=== PATIENT | male | born 1995 | race Caucasian/White ===

== ENCOUNTER 2023-03-25 11:43 | Inpatient (IN) | payer OTHER, SELFPAY ==
[2023-03-25] VITALS (12 sets, daily range): BP systolic 134–161; BP diastolic 78–106; PULSE 70–104; RESP 17–26; TEMP 36.4–36.6; O2SAT 97–100; BMI 37.3
--- NOTE | ~2023-03-25 | CT_ITS ---
CT of the Abdomen and Pelvis: Indication: Abdominal pain Technique: 2.5 mm axial scans were obtained through the abdomen and pelvis following intravenous adm inistration of 100 cc of Omnipaque 350. Dose reduction technique was used on this scan by utilizing a utomated exposure control and iterative reconstruction technique. The dose-length product (DLP) was 1 635.87 mGy-cm. Findings: Scans through the lung bases are unremarkable. There is diffuse fatty infiltration of liver. The spleen, pancreas, gallbladder, adrenals and kidneys are within normal limits. There is inflammatory stranding in the pancreaticoduodenal groove region e xtending into the infrahepatic region and right retroperitoneum, extending to the right pelvis. No ab scess evident. No free air. No evidence of aortic aneurysm. No lymphadenopathy. No bowel obstruction or bowel wall thickening. There is no evidence to suggest acute appendicitis. Images through the pelvis were performed. Urinary bladder unremarkable. Prostate gland and seminal ve sicles are unremarkable. Impression: Inflammatory change in the right-sided the abdomen, extending from the pancreaticoduodenal groove thr ough the right retroperitoneum into the right pelvis. Precise etiology is somewhat unclear, though ac tessy pancreatitis would be likely consideration. Duodenitis or peptic ulcer disease would be an altern ative consideration. Primary bowel pathology felt to be less likely. Diffuse fatty infiltration of liver. Reviewed, dictated and finalized at location . [employer]ICAL INSTRUCTOR Impression: Inflammatory change in the right-sided the abdomen, extending from the pancreat icoduodenal groove through the right retroperitoneum into the right pelvis. Pre cise etiology is somewhat unclear, though acute pancreatitis would be likely co nsideration. Duodenitis or peptic ulcer disease would be an alternative conside ration. Primary bowel pathology felt to be less likely. Diffuse fatty infiltration of liver.
[2023-03-25 11:59] LABS: Basophils Percent Auto 0.4 % (0.2-1.2); Eosinophils Absolute Auto 0.1 K/mm3 (0-0.3); Eosinophils Percent Auto 1.6 % (0-4.4); Hematocrit 49.7 % (42.0-52.0); Hemoglobin 16.3 g/dL (14.0-18.0); Immature Granulocyte Absolute 0.04 K/mm3 (0.00-0.031); Immature Granulocyte Percent A 0.5 % (0-0.5); Lymphocytes Absolute Auto 1.79 K/mm3 (0.9-3.2); Lymphocytes Percent Auto 21.7 % (18.3-44.2); Mean Corpuscular HGB Conc 32.8 g/dl (32-36); Mean Corpuscular Volume 94.5 fl (80-100); Mean Platelet Volume 8.7 fl (7.4-10.4); Monocytes Absolute Auto 0.7 K/mm3 (0.1-0.6); Monocytes Percent Auto 8.1 % (2.6-8.5); Neutrophils Absolute Auto 5.6 K/mm3 (1.3-6.7); Neutrophils Percent Auto 67.7 % (45.5-73.1); Platelet Count Result 306 k/mm3 (150-375); Red Blood Count 5.26 M/mm3 (4.6-6.20); Red Cell Distribution Width 12.1 % (11.5-14.5); White Blood Count 8.2 K/mm3 (4.5-10.0)
--- NOTE | 2023-03-25 12:10 | ED.ABDPAIN ---
HPI - Abdominal Pain General Chief Complaint: Abdominal Pain Stated Complaint: Abd pain Time Seen by Provider: 03/25/23 12:00 History of Present Illness HPI narrative: 27-year-old male presenting with abdominal pain. Patient states that for the last couple of days he has had a pressure-like pain in his periumbilical region. States that it extends into his right lower and left lower quadrants. Associated with decreased appetite and intermittent nausea vomiting. Denies diarrhea or constipation. No hematochezia or melena. No fevers or chills. No further complaints. Related Data Home Medications Medication Instructions Recorded Confirmed dextroamphetamine-amphetamine 20 20 mg PO BID 03/25/23 03/25/23 mg tablet propranolol 20 mg tablet 20 mg PO TID 03/25/23 03/25/23 sertraline 50 mg tablet 50 mg PO HS 03/25/23 03/25/23 Allergies Allergy/AdvReac Type Severity Reaction Status Date / Time No Known Allergies Allergy Verified 03/25/23 11:52 Review of Systems Review of Systems: All systems reviewed & are unremarkable except as noted in HPI and below PMFSH Past Medical History Medical History (Updated 03/29/23 @ 13:54 by Rylee Shah MD) ADHD Alcohol abuse Anxiety and depression Asthma Elevated liver enzymes Upper abdominal pain Surgical History Surgical History History of repair of anterior cruciate ligament L Knee - 2010 Family History Family History Father Hypertension GERD (gastroesophageal reflux disease) Social History Social History Smoking status: Former smoker Second hand tobacco smoke exposure: No Additional smoking assessment comments: stated he vapes every now and then. Alcohol intake: current Drinks per week: 4 Substance use: never Substance use type: does not use Do You Feel Safe in your Home?: Yes Lack of Transportation: No Lack of Food: Never True Current Housing: I Have Housing Concerned About Future Housing: No Difficulty Paying Gas/Electric Bills: No Difficulty Paying for Meds: No Currently Unemployed: No Education: High School Diploma/GED Difficulty w/ Childcare or Family Care: No Spiritual care concerns: No Exam Narrative: GENERAL: Well-appearing, well-nourished, and in no acute distress. HEAD: Normocephalic, atraumatic. EYES: PERRLA and EOMI. ENT: Grossly unremarkable NECK: Supple. CHEST: Clear to auscultation. No respiratory distress. HEART: Regular rate and rhythm ABDOMEN: Soft, +periumbilical/RLQ/LLQ tenderness w/o guarding or rebound EXTREMITIES: Normal range of motion. SKIN: Warm, dry, no rash. NEURO: Alert and oriented x3. PSYCH: Normal mood and affect. Course Vital Signs Vital signs: Vital Signs Temperature 97.6 F 03/25/23 11:49 Pulse Rate 104 H 03/25/23 11:49 Respiratory Rate 20 03/25/23 11:49 Blood Pressure 161/106 H 03/25/23 11:49 Pulse Oximetry 100 03/25/23 11:49 Oxygen Delivery Room Air 03/25/23 11:49 Temperature 96.9 F L 03/27/23 06:00 Pulse Rate 85 03/27/23 08:42 Respiratory Rate 12 03/27/23 08:00 Blood Pressure 143/71 H 03/27/23 06:00 Pulse Oximetry 99 03/27/23 08:00 Oxygen Delivery Room Air 03/27/23 08:00 MDM - Abdominal Pain MDM Narrative Medical decision making narrative: 27-year-old male presenting with several days of abdominal pain. Patient is hypertensive, Otherwise vitals are within normal limits. Exam remarkable for the above. CBC is unremarkable. Lipase is elevated at 1500. CT abdomen pelvis with diffuse right-sided inflammation, possibly from acute pancreatitis which is c/w his labs. Duodenitis and peptic ulcer disease also in the differential. No abscesses or free air. Patient requires admission for further management evaluation. Patient is agreeable this selwyn
[2023-03-25 12:14] LABS: Alanine Aminotransferase 82 U/L (6-50); Albumin Level 4.7 g/dL (3.5-5.1); Alkaline Phosphatase 124 U/L (38-126); Anion Gap 10 mmol/L (8-16); Aspartate Amino Transferase 96 U/L (17-59); Bilirubin,Total 1.3 mg/dL (0.2-1.3); Blood Urea Nitrogen 12 mg/dL (9-20); Calcium 9.4 mg/dL (8.4-10.2); Carbon Dioxide 28 mmol/L (22-30); Chloride 99 mmol/L (98-107); Estimated CRCL calculation 162 ml/min; Estimated Glomerular Filt Rate > 60; Glucose 118 mg/dL (65-110); Lipase 1541 U/L (23-300); Potassium 4.1 mmol/L (3.4-5.0); Sodium 137 mmol/L (137-145)
[2023-03-25 12:14] LABS: Appearance Urine Cloudy (Clear); Bacteria Urine None Seen /hpf; Bilirubin Urine Negative (Negative); Blood Urine Negative (Negative); Color Urine Dark Yellow (Yellow); Glucose Urine UA Negative (Negative); Ketones Urine 1+ mg/dL (Negative); Leukocyte Esterase Ur Negative LEU/UL (Negative); Nitrate Urine Negative (Negative); Non Pathogenic Casts 0-2; Protein Urine 1+ mg/dL (Negative); RBC Urine 0-2 /hpf (0-2); Squamous Epithelial Cell Urine None seen /hpf (Few); WBC Urine 0-5 /hpf
[2023-03-25] MEDS: SODIUM CHLORIDE 0.9% IV 1,000 ML 999 ML IV CONT (12:20)
[2023-03-25 12:22] LABS: Add Urine Microscopic? YES
--- NOTE | 2023-03-25 12:29 | PC.NURSE ---
Pt to CT scan via w/c at this time.
--- NOTE | 2023-03-25 16:11 | ADMGEN ---
This patient, Adama Chapa, was admitted to 3 [facility] Surg Room 320-01. Patient/family oriented to hospital policies and general routines including ID bracelet, bed and alarms, visiting hours, pain management, procedures, bathroom and other care routines, personal items, smoking policy, room service/diet, and visiting hours. Information on how to activate the Rapid Response Team has been discussed. Patient/Family are encouraged to report perceived risks to care and to ask questions if they do not understand what they are told or what they should do.
--- NOTE | 2023-03-25 19:16 | PM.IMHP ---
H&P: HPI History of Present Illness Date/Time: 03/25/23 19:16 Chief Complaint: N/V, Lower Abdominal Pain Narrative: 27 y/o M presents here with lower abdominal pain and N/V with PMH of asthma, ADHD, anxiety/depression. Patient reports generalized lower abdominal pain for the past 2 days, described as severe and pressure. Proceeded by 2 weeks of intermittent nausea and vomiting that did not appear to correlate with lack of food or consumption of food. Last bowel movement was last, 03/24. Normal color and consistency. Reports alcohol consumption 3-4 days per week, 3-6 glasses of wine. Does not take [id number]-chcrzgd medications often. Reports acid reflux symptoms intermittently, has worsened over the last 3-4 years. Does not follow with a PCP, recently moved here from [place] to work with his brother. Currently working as a screw machine set up operator tool. ED workup revealed an unremarkable CBC, no electrolyte derangements, creatinine WNL, LFTs elevated and lipase 1541. UA not consistent with UTI. CT of the abdomen/pelvis showed inflammatory changes in the right side of the abdomen extending from the?pancreaticoduodenal groove into the right pelvis. Review of Systems Review of Systems: All systems reviewed & are unremarkable except as noted in HPI and below PMFSH Past Medical History Medical History (Updated 03/26/23 @ 00:46 by Shelbie Fuentes APRN) ADHD Anxiety and depression Asthma Surgical History Surgical History History of repair of anterior cruciate ligament L Knee - 2010 Family History Family History Father Hypertension GERD (gastroesophageal reflux disease) Social History Social History Smoking status: Former smoker Second hand tobacco smoke exposure: No Additional smoking assessment comments: stated he vapes every now and then. Alcohol intake: current Drinks per week: 4 Substance use: never Substance use type: does not use Do You Feel Safe in your Home?: Yes Lack of Transportation: No Lack of Food: Never True Current Housing: I Have Housing Concerned About Future Housing: No Difficulty Paying Gas/Electric Bills: No Difficulty Paying for Meds: No Currently Unemployed: No Education: High School Diploma/GED Difficulty w/ Childcare or Family Care: No Spiritual care concerns: No Meds Home Medications and Allergies Home Medications Medication Instructions Recorded Confirmed Type dextroamphetamine-amphetamine 20 20 mg PO BID 03/25/23 03/25/23 History mg tablet propranolol 20 mg tablet 20 mg PO TID 03/25/23 03/25/23 History sertraline 50 mg tablet 50 mg PO HS 03/25/23 03/25/23 History Allergies Allergy/AdvReac Type Severity Reaction Status Date / Time No Known Allergies Allergy Verified 03/25/23 11:52 Vital Signs Vital Signs - 24 hr 03/25/23 11:49 03/25/23 12:46 03/25/23 12:17 Temperature 97.6 F Pulse Rate 104 H 86 87 Respiratory Rate 20 24 H 26 H Blood Pressure 161/106 H 147/94 H Pulse Oximetry 100 100 97 Oxygen Delivery Room Air 03/25/23 12:45 03/25/23 12:46 03/25/23 13:00 Temperature Pulse Rate 95 87 96 Respiratory Rate 23 H 22 H 25 H Blood Pressure 147/94 H Pulse Oximetry 100 100 100 Oxygen Delivery 03/25/23 13:22 03/25/23 13:30 03/25/23 13:49 Temperature Pulse Rate 85 93 82 Respiratory Rate 25 H 17 24 H Blood Pressure Pulse Oximetry 100 100 99 Oxygen Delivery 03/25/23 14:02 03/25/23 15:24 03/25/23 16:17 Temperature Pulse Rate 93 86 Respiratory Rate 20 20 Blood Pressure 143/93 H Pulse Oximetry 100 98 Oxygen Delivery Room Air Exam Const: General: comfortable and no acute distress Other: Nontoxic appearance. Overweight body habitus. HENMT: Face/Nose/Sinus: Normal nares present Mouth: Yes moist muco
[2023-03-26] MEDS: LACTATED RINGERS 1,000 ML 100 ML IV CONT ×2 (01:20→10:54)
[2023-03-26 06:00] VITALS: BP 141/86; PULSE 69; RESP 21; TEMP 36.6; O2SAT 100
[2023-03-26 07:08] LABS: Cholesterol 166 mg/dL (0-200); HDL Direct 57 mg/dL; Triglycerides 100 mg/dL (<150)
[2023-03-26 07:18] LABS: LDL Cholesterol Direct 89 mg/dL
[2023-03-26 07:26] LABS: Hemoglobin A1C 5.7 % (<5.7)
[2023-03-26] MEDS: PANTOPRAZOLE SODIUM IV 40 MG VIAL IV PUSH ×2 (08:37→20:03)
--- NOTE | 2023-03-26 09:52 | PM.IMPN ---
Progress Note: A&P Assessment and Plan (1) Pancreatitis: Code(s): K85.90 - Acute pancreatitis without necrosis or infection, unspecified Status: Acute (2) Nausea and vomiting: Code(s): R11.2 - Nausea with vomiting, unspecified Status: Acute (3) Abdominal pain, lower: Code(s): R10.30 - Lower abdominal pain, unspecified Status: Acute (4) Elevated BP without diagnosis of hypertension: Code(s): R03.0 - Elevated blood-pressure reading, without diagnosis of hypertension Status: Acute Plan (1) Abdominal pain, lower: ?Code(s): R10.30 - Lower abdominal pain, unspecified ?Status:?Acute ?Assessment and Plan: CT abdomen/pelvis: Inflammatory change in the right-sided the abdomen, extending from the pancreaticoduodenal groove through the right retroperitoneum into the right pelvis. Precise etiology is somewhat unclear, though acute pancreatitis would be likely consideration. Duodenitis or peptic ulcer disease would be an alternative consideration. Primary bowel pathology felt to be less likely. Diffuse fatty infiltration of liver. Denied any changes in stool color.? No correlation in p.o. intake and N/V.? Endorsed moderate to heavy alcohol intake. very infrequent OTC medication use.? AST 96, ALT 82, total bilirubin 1.3, alk-phos 124, lipase 1541.? Given CT findings, Started on PPI, clear liquids, p.r.n. pain medications, and p.r.n. antiemetics.? Reassess LFTs and lipase in a.m. GI was consulted.? Awaiting recommendations.? (2) Pancreatitis: ?Code(s): K85.90 - Acute pancreatitis without necrosis or infection, unspecified ?Status:?Acute ?Assessment and Plan: Started on clear liquids, p.r.n. pain medications, and p.r.n. antiemetics.? Reassess lipase in a.m. add lipid panel and A1C to AM labs.? Patient educated on cessation of alcohol. (3) Nausea and vomiting: ?Code(s): R11.2 - Nausea with vomiting, unspecified ?Status:?Acute ?Assessment and Plan: P.r.n. antiemetics.? Started on clear liquids.? Assess for toleration. (4) Elevated BP without diagnosis of hypertension: ?Code(s): R03.0 - Elevated blood-pressure reading, without diagnosis of hypertension ?Status:?Acute ?Assessment and Plan: Patient denied personal history of HTN, does have family history of HTN.? Initial BP 161/106.? Subsequently 140s over 90s.? Continue to monitor.? Currently asymptomatic.? Not currently established with a PCP, will need referral/information at discharge. Subjective Date/time seen: 03/26/23 09:52 Interval history: I saw exam patient today, patient feels nausea results, pain is tolerable, patient is afebrile, labs are reviewed Exam Narrative: GENERAL: Pleasant, in no acute distress. Well-nourished. - EYES: EOMI. Anicteric. - HENT: Moist mucous membranes. - LUNGS: Clear to auscultation bilaterally, no wheezing, rhonchi, or rales. - CARDIOVASCULAR: Regular rate and rhythm. No murmur. No JVD. - ABDOMEN: Soft, diffuse tender and non-distended. No palpable masses. - EXTREMITIES: No edema. Peripheral pulses 2+. Non-tender. - NEUROLOGIC: No focal neurological deficits. CN II-XII grossly intact. - PSYCHIATRIC: Awake, Alert and oriented x 3. Appropriate mood and affect. - SKIN: No rashes or lesions. Warm. - LYMPH: No cervical lymphadenopathy. Objective Data Vital Signs Vital Signs: Vital Signs - 24 hr 03/25/23 11:49 03/25/23 12:46 03/25/23 12:17 Temperature 97.6 F Pulse Rate 104 H 86 87 Respiratory Rate 20 24 H 26 H Blood Pressure 161/106 H 147/94 H Pulse Oximetry 100 100 97 Oxygen Delivery Room Air 03/25/23 12:45 03/25/23 12:46 03/25/23 13:00 Temperature Pulse Rate 95 87 96 Respiratory Rate 23 H 22 H 25 H Blood Pressure 147/94 H Pulse Oximetry 100 100 100 Oxygen Delivery 03/25/23 13:22 03/25/23 13:30 03/25/23 13:49 Temperature Pulse Rate 85 93 82 Respiratory Rate 25 H 17 24 H Blood Pressu
[2023-03-26 10:18] LABS: Hematocrit 44.3 % (42.0-52.0); Hemoglobin 14.6 g/dL (14.0-18.0); Mean Corpuscular Hemoglobin 31.3 pg (26-34); Mean Corpuscular Volume 94.9 fl (80-100); Mean Platelet Volume 9.2 fl (7.4-10.4); Platelet Count Result 265 k/mm3 (150-375); Red Blood Count 4.67 M/mm3 (4.6-6.20); Red Cell Distribution Width 12.1 % (11.5-14.5)
[2023-03-26 10:54] VITALS: PULSE 65
[2023-03-26] MEDS: PROPRANOLOL HCL 20 MG TABLET PO ×2 (10:54→17:59)
[2023-03-26 10:55] LABS: Alanine Aminotransferase 62 U/L (6-50); Albumin Level 4.1 g/dL (3.5-5.1); Alkaline Phosphatase 94 U/L (38-126); Anion Gap 9 mmol/L (8-16); Aspartate Amino Transferase 74 U/L (17-59); Blood Urea Nitrogen 12 mg/dL (9-20); Calcium 8.8 mg/dL (8.4-10.2); Carbon Dioxide 25 mmol/L (22-30); Chloride 103 mmol/L (98-107); Estimated CRCL calculation 181 ml/min; Estimated Glomerular Filt Rate > 60; Glucose 110 mg/dL (65-110); Magnesium 2.1 mg/dL (1.6-2.3); Phosphorus 2.8 mg/dL (2.5-4.5); Potassium 3.7 mmol/L (3.4-5.0); Sodium 137 mmol/L (137-145)
[2023-03-26 14:00] VITALS: BP 148/97; PULSE 79; RESP 18; TEMP 36.5; O2SAT 99
--- NOTE | 2023-03-26 17:37 | PC.NURSE ---
called Dr Gatica regarding consult. will be in to see patient in the am 03/27
[2023-03-26 17:59] VITALS: PULSE 75
[2023-03-26 19:20] VITALS: O2SAT 99
[2023-03-26] MEDS: SERTRALINE HCL 50 MG TABLET PO (20:03)
[2023-03-26 21:48] VITALS: BP 132/78; PULSE 72; RESP 12; TEMP 36.5; O2SAT 98
[2023-03-27 06:00] VITALS: BP 143/71; PULSE 63; RESP 12; TEMP 36.1; O2SAT 99
[2023-03-27 06:44] LABS: Basophils Percent Auto 0.5 % (0.2-1.2); Eosinophils Absolute Auto 0.1 K/mm3 (0-0.3); Eosinophils Percent Auto 2.2 % (0-4.4); Hematocrit 43.2 % (42.0-52.0); Immature Granulocyte Absolute 0.03 K/mm3 (0.00-0.031); Immature Granulocyte Percent A 0.5 % (0-0.5); Lymphocytes Absolute Auto 1.87 K/mm3 (0.9-3.2); Lymphocytes Percent Auto 34.2 % (18.3-44.2); Mean Corpuscular HGB Conc 32.4 g/dl (32-36); Mean Corpuscular Hemoglobin 31.1 pg (26-34); Mean Platelet Volume 8.7 fl (7.4-10.4); Monocytes Absolute Auto 0.4 K/mm3 (0.1-0.6); Monocytes Percent Auto 7.1 % (2.6-8.5); Neutrophils Percent Auto 55.5 % (45.5-73.1); Platelet Count Result 243 k/mm3 (150-375); Red Cell Distribution Width 11.9 % (11.5-14.5); White Blood Count 5.5 K/mm3 (4.5-10.0)
[2023-03-27 06:59] LABS: Alanine Aminotransferase 58 U/L (6-50); Albumin Level 4.1 g/dL (3.5-5.1); Alkaline Phosphatase 91 U/L (38-126); Anion Gap 9 mmol/L (8-16); Aspartate Amino Transferase 79 U/L (17-59); Bilirubin,Total 0.8 mg/dL (0.2-1.3); Blood Urea Nitrogen 7 mg/dL (9-20); Calcium 9.1 mg/dL (8.4-10.2); Carbon Dioxide 27 mmol/L (22-30); Chloride 102 mmol/L (98-107); Estimated CRCL calculation 181 ml/min; Estimated Glomerular Filt Rate > 60; Glucose 101 mg/dL (65-110); Phosphorus 3.4 mg/dL (2.5-4.5); Potassium 3.7 mmol/L (3.4-5.0); Sodium 138 mmol/L (137-145)
[2023-03-27 07:05] LABS: Lipase 1976 U/L (23-300)
[2023-03-27 08:00] VITALS: PULSE 85; RESP 12; O2SAT 99
[2023-03-27 08:42] VITALS: PULSE 85
[2023-03-27] MEDS: PROPRANOLOL HCL 20 MG TABLET PO ×2 (08:42→12:27)
[2023-03-27] MEDS: PANTOPRAZOLE SODIUM IV 40 MG VIAL IV PUSH (08:42)
--- NOTE | 2023-03-27 08:52 | PM.IMPN ---
Progress Note: A&P Assessment and Plan (1) Pancreatitis: Code(s): K85.90 - Acute pancreatitis without necrosis or infection, unspecified Status: Acute (2) Nausea and vomiting: Code(s): R11.2 - Nausea with vomiting, unspecified Status: Acute (3) Abdominal pain, lower: Code(s): R10.30 - Lower abdominal pain, unspecified Status: Acute (4) Elevated BP without diagnosis of hypertension: Code(s): R03.0 - Elevated blood-pressure reading, without diagnosis of hypertension Status: Acute Plan (1) Abdominal pain, lower: ?Code(s): R10.30 - Lower abdominal pain, unspecified ?Status:?Acute ?Assessment and Plan: CT abdomen/pelvis: Inflammatory change in the right-sided the abdomen, extending from the pancreaticoduodenal groove through the right retroperitoneum into the right pelvis. Precise etiology is somewhat unclear, though acute pancreatitis would be likely consideration. Duodenitis or peptic ulcer disease would be an alternative consideration. Primary bowel pathology felt to be less likely. Diffuse fatty infiltration of liver. Denied any changes in stool color.? No correlation in p.o. intake and N/V.? Endorsed moderate to heavy alcohol intake. very infrequent OTC medication use.? AST 96, ALT 82, total bilirubin 1.3, alk-phos 124, lipase 1541.? Given CT findings, Started on PPI, clear liquids, p.r.n. pain medications, and p.r.n. antiemetics.? Reassess LFTs and lipase in a.m. GI was consulted.? Awaiting recommendations.? 03/27. Patient has no abdomen pain, denies nausea vomiting. Patient will follow with primary care doctor in the office, referral to GI per primary care doctor (2) Pancreatitis: ?Code(s): K85.90 - Acute pancreatitis without necrosis or infection, unspecified ?Status:?Acute ?Assessment and Plan: Started on clear liquids, p.r.n. pain medications, and p.r.n. antiemetics.? Reassess lipase in a.m. add lipid panel and A1C to AM labs.? Patient educated on cessation of alcohol. 03/27: Start low-fat diet, patient tolerated low-fat diet (3) Nausea and vomiting: ?Code(s): R11.2 - Nausea with vomiting, unspecified ?Status:?Acute ?Assessment and Plan: P.r.n. antiemetics.? Started on clear liquids.? Assess for toleration. Now resolves (4) Elevated BP without diagnosis of hypertension: ?Code(s): R03.0 - Elevated blood-pressure reading, without diagnosis of hypertension ?Status:?Acute ?Assessment and Plan: Patient denied personal history of HTN, does have family history of HTN.? Initial BP 161/106.? Subsequently 140s over 90s.? Continue to monitor.? Currently asymptomatic.? Not currently established with a PCP Follow-up is primary care doctor for re-evaluation Subjective Date/time seen: 03/27/23 08:52 Interval history: I saw exam patient today, patient has no pain, denies nausea vomiting, patient tolerated low fat diet well, patient is afebrile, labs are reviewed Exam Narrative: GENERAL: Pleasant, in no acute distress. Well-nourished. - EYES: EOMI. Anicteric. - HENT: Moist mucous membranes. - LUNGS: Clear to auscultation bilaterally, no wheezing, rhonchi, or rales. - CARDIOVASCULAR: Regular rate and rhythm. No murmur. No JVD. - ABDOMEN: Soft, no tender and non-distended. No palpable masses. - EXTREMITIES: No edema. Peripheral pulses 2+. Non-tender. - NEUROLOGIC: No focal neurological deficits. CN II-XII grossly intact. - PSYCHIATRIC: Awake, Alert and oriented x 3. Appropriate mood and affect. - SKIN: No rashes or lesions. Warm. - LYMPH: No cervical lymphadenopathy. Objective Data Vital Signs Vital Signs: Vital Signs - 24 hr 03/26/23 10:54 03/26/23 14:00 03/26/23 17:59 Temperature 97.7 F Pulse Rate 65 79 75 Respiratory Rate 18 Blood Pressure 148/97 H Pulse Oximetry 99 Oxygen Delivery 03/26/23 19:20 03/26/23 21:48 03/27/23 06:00 Temperature 97.7 F 96.9 F L Pulse Rate 72
--- NOTE | 2023-03-27 14:58 | PM.DS ---
DS: Admitting Diagnosis Discharge Date 03/27/23 Admitting Diagnosis K85.90 - Acute pancreatitis without necrosis or infection, unspecified ?Status:?Acute (2) Nausea and vomiting: ?Code(s): R11.2 - Nausea with vomiting, unspecified ?Status:?Acute (3) Abdominal pain, lower: ?Code(s): R10.30 - Lower abdominal pain, unspecified ?Status:?Acute (4) Elevated BP without diagnosis of hypertension: ?Code(s): R03.0 - Elevated blood-pressure reading, without diagnosis of hypertension ?Status:?Acute DS: Discharge Diagnosis Discharge Diagnosis (1) Pancreatitis: Code(s): K85.90 - Acute pancreatitis without necrosis or infection, unspecified Status: Acute (2) Nausea and vomiting: Code(s): R11.2 - Nausea with vomiting, unspecified Status: Acute (3) Abdominal pain, lower: Code(s): R10.30 - Lower abdominal pain, unspecified Status: Acute (4) Elevated BP without diagnosis of hypertension: Code(s): R03.0 - Elevated blood-pressure reading, without diagnosis of hypertension Status: Acute DS: Summary Hospital Course Hospital Course: Per H&P, 27 y/o M presents here with lower abdominal pain and N/V with PMH of asthma, ADHD, anxiety/depression. Patient reports generalized lower abdominal pain for the past 2 days, described as severe and pressure.? Proceeded by 2 weeks of intermittent nausea and vomiting that did not appear to correlate with lack of food or consumption of food.? Last bowel movement was last, 03/24.? Normal color and consistency.? Reports alcohol consumption 3-4 days per week, 3-6 glasses of wine.? Does not take [id number] medications often.? Reports acid reflux symptoms intermittently, has worsened over the last 3-4 years.? Does not follow with a PCP, recently moved here from [place] to work with his brother.? Currently working as a logging contractor.? ED workup revealed an unremarkable CBC, no electrolyte derangements, creatinine WNL, LFTs elevated and lipase 1541.? UA not consistent with UTI.? CT of the abdomen/pelvis showed inflammatory changes in the right side of the abdomen extending from the?pancreaticoduodenal groove into the right pelvis. The following med issues have been addressed during hospitalization (1) Abdominal pain, lower: ?Code(s): R10.30 - Lower abdominal pain, unspecified ?Status:?Acute ?Assessment and Plan: CT abdomen/pelvis: Inflammatory change in the right-sided the abdomen, extending from the pancreaticoduodenal groove through the right retroperitoneum into the right pelvis. Precise etiology is somewhat unclear, though acute pancreatitis would be likely consideration. Duodenitis or peptic ulcer disease would be an alternative consideration. Primary bowel pathology felt to be less likely. Diffuse fatty infiltration of liver. Denied any changes in stool color.? No correlation in p.o. intake and N/V.? Endorsed moderate to heavy alcohol intake. very infrequent OTC medication use.? AST 96, ALT 82, total bilirubin 1.3, alk-phos 124, lipase 1541.? Given CT findings, Started on PPI, clear liquids, p.r.n. pain medications, and p.r.n. antiemetics.? Reassess LFTs and lipase in a.m. GI was consulted.? Awaiting recommendations.? 03/27. Patient has no abdomen pain, denies nausea vomiting. Possible alcoholic gastroenteritis, start Protonix 40 mg daily p.o., patient will follow with primary care doctor in the office, referral to GI per primary care doctor (2) Pancreatitis: ?Code(s): K85.90 - Acute pancreatitis without necrosis or infection, unspecified ?Status:?Acute ?Assessment and Plan: Started on clear liquids, p.r.n. pain medications, and p.r.n. antiemetics.? Reassess lipase in a.m. add lipid panel and A1C to AM labs.? Patient educated on cessation of alcohol. 03/27: Start low-fat diet, patient tolerated low-fat diet (3) Nausea and vomiting: ?Code(s): R11.2 - Nausea with vomiting, unspecified
--- NOTE | 2023-03-27 15:14 | WPDGICN ---
Assessment and Plan Assessment and plan (1) Pancreatitis: Code(s): K85.90 - Acute pancreatitis without necrosis or infection, unspecified Status: Acute Assessment and Plan: clinically better and now tolerating low fat diet he is going home probably alcohol related- he understood that should not drink any more alcohol follow-up office as needed (2) Nausea and vomiting: Code(s): R11.2 - Nausea with vomiting, unspecified Status: Acute Assessment and Plan: resolved (3) Upper abdominal pain: Code(s): R10.10 - Upper abdominal pain, unspecified Status: Acute (4) Elevated liver enzymes: Code(s): R74.8 - Abnormal levels of other serum enzymes Status: Acute Assessment and Plan: from alcohol abuse and recent pancreatitis monitor as outpatient and if persistent elevated then follow-up office (5) Alcohol abuse: Code(s): F10.10 - Alcohol abuse, uncomplicated Status: Acute Assessment and Plan: thiamine, quit drinking GI Consult Note Consult date/time: 03/27/23 15:14 Reason for consult: pancreatitis HPI: Adama Chapa is a 27 year old male with alcohol abuse (6-7 glasses of wine daily for few years) who came here with progressive abdominal discomfort for almost 10 days that worsened in intensity, also had nause and some emesis, finally came to ER and found to have first episode of pancreatitis, elevated lipase, transaminases 50-70, CT scan c/w pancreatitis and fatty liver. Treated medically and pain resolved, today had low fat diet and no more nausea, he is ready to go home. He has anxiety and ADHD on meds. Never had egd. Review of Systems Constitutional: Constitutional: Denies chills Eyes: Eyes: Reports blurry vision ENT: Reports Normal hearing present Cardiovascular: Cardiovascular: Denies chest pain Respiratory: Respiratory: Denies cough Gastrointestinal: Gastrointestinal: Reports abdominal pain, Reports nausea and Reports vomiting Genitourinary: Genitourinary: Denies dysuria Musculoskeletal: Musculoskeletal: Denies arthralgias Integumentary/Breasts: Skin/Breast: Denies rash Neurologic: Denies Abnormal speech present Psychiatric: Psychiatric: Reports anxiety PMFSH Past Medical History Medical History (Updated 03/27/23 @ 15:17 by Gonzalo Bray MD) ADHD Alcohol abuse Anxiety and depression Asthma Elevated liver enzymes Upper abdominal pain Surgical History Surgical History History of repair of anterior cruciate ligament L Knee - 2010 Family History Family History Father Hypertension GERD (gastroesophageal reflux disease) Social History Social History Smoking status: Former smoker Second hand tobacco smoke exposure: No Additional smoking assessment comments: stated he vapes every now and then. Alcohol intake: current Drinks per week: 4 Substance use: never Substance use type: does not use Do You Feel Safe in your Home?: Yes Lack of Transportation: No Lack of Food: Never True Current Housing: I Have Housing Concerned About Future Housing: No Difficulty Paying Gas/Electric Bills: No Difficulty Paying for Meds: No Currently Unemployed: No Education: High School Diploma/GED Difficulty w/ Childcare or Family Care: No Spiritual care concerns: No Meds Home Medications and Allergies Home Medications Medication Instructions Recorded Confirmed Type dextroamphetamine-amphetamine 20 20 mg PO BID 03/25/23 03/25/23 History mg tablet propranolol 20 mg tablet 20 mg PO TID 03/25/23 03/25/23 History sertraline 50 mg tablet 50 mg PO HS 03/25/23 03/25/23 History pantoprazole 40 mg granules 40 mg PO DAILY #30 ea 03/27/23 Rx delayed-release for susp in packet (Protonix) Allergi
== END 2023-03-27 15:06 | disposition home or self-care (01) | DRG 439 ==
LOC: ANHED 12:18 → ANH3MEDSUR 15:11
PROVIDERS: Emergency Medicine; Student in an Organized Health Care Education/Training Program; Admitting Provider Internal Medicine; Emergency Provider Emergency Medicine; Visit Provider Hospitalist
DX: K85.90 Acute pancreatitis without necrosis or infection, unspecified (principal); J45.901 Unspecified asthma with (acute) exacerbation; R03.0 Elevated blood-pressure reading, without diagnosis of hypertension; F90.9 Attention-deficit hyperactivity disorder, unspecified type; F41.9 Anxiety disorder, unspecified; F32.A Depression, unspecified; F10.10 Alcohol abuse, uncomplicated; F17.290 Nicotine dependence, other tobacco product, uncomplicated; Z28.21 Immunization not carried out because of patient refusal
CPT/HCPCS: 36415; 74177; 80053; 80061; 81001; 83036; 83690; 83735; 84100; 85025; 85027; 99285; A9270; C9113; G0378; J7030; J7120; Q9967

== ENCOUNTER 2024-09-29 18:11 | Emergency (ER) | payer OTHER, SELFPAY ==
--- NOTE | 2024-09-29 18:12 | ED.WOUNDLAC ---
HPI - Wound/Laceration General Chief Complaint: Wound/Laceration Stated Complaint: Cut Left Leg Time Seen by Provider: 09/29/24 18:21 Source: patient, RN notes reviewed and old records reviewed Mode of arrival: ambulatory Limitations: no limitations History of Present Illness HPI narrative: 29-year-old male presents to the [facility] with vesicular areas to the left lower anterior and medial aspect of his leg. Noticed some spots 3-4 days ago. Has had some clear drainage from the areas. Has been applying Neosporin Related Data Home Medications ?Medication ?Instructions ?Recorded ?Confirmed ?Last Taken ?Type dextroamphetamine-amphetamine 20 20 mg PO BID 03/25/23 03/25/23 03/25/23 09:00 History mg tablet propranolol 20 mg tablet 20 mg PO TID 03/25/23 09/29/24 03/25/23 09:00 History sertraline 50 mg tablet 50 mg PO HS 03/25/23 09/29/24 03/24/23 History fluconazole 100 mg tablet mg 09/29/24 Unknown History Allergies Allergy/AdvReac Type Severity Reaction Status Date / Time No Known Allergies Allergy Verified 09/29/24 18:23 Review of Systems Review of Systems: All systems reviewed & are unremarkable except as noted in HPI and below Constitutional: Constitutional: Reports no additional constitutional complaints ENT: Reports system reviewed and no additional complaints, except as documented Cardiovascular: Cardiovascular: Reports no additional cardiovascular complaints, Denies chest pain and Denies dyspnea Respiratory: Respiratory: Reports no additional respiratory complaints, Denies chest congestion, Denies cough and Denies dyspnea Musculoskeletal: Musculoskeletal: Reports no additional musculoskeletal complaints Integumentary/Breasts: Skin/Breast: Reports as per HPI [facility] Past Medical History Medical History (Updated 09/29/24 @ 18:34 by Vilma Baumann APRN) Alcohol abuse Elevated liver enzymes Upper abdominal pain ADHD Anxiety and depression Asthma Surgical History Surgical History History of repair of anterior cruciate ligament L Knee - 2010 Family History Family History Father Hypertension GERD (gastroesophageal reflux disease) Social History Social History Smoking status: Former smoker Second hand tobacco smoke exposure: No Additional smoking assessment comments: stated he vapes every now and then. Alcohol intake: current Drinks per week: 4 Substance use: never Substance use type: does not use Do You Feel Safe in your Home?: Yes Lack of Transportation: No Lack of Food: Never True Current Housing: I Have Housing Concerned About Future Housing: No Difficulty Paying Gas/Electric Bills: No Difficulty Paying for Meds: No Currently Unemployed: No Education: High School Diploma/GED Difficulty w/ Childcare or Family Care: No Spiritual care concerns: No Comments At the time of my signature, I reviewed and agree with the nursing past medical, surgical, social, and family history. There is no relevant family history pertinent to the patient complaint. Exam Const: General: cooperative, healthy appearing, comfortable, no acute distress, well developed, alert and well nourished Nutritional Appearance: well nourished Orientation/consciousness: patient oriented x3 Limitations: no limitations HENMT: Head: normal to inspection Eyes: General: appearance normal, both eyes and all related structures Alignment and Position: alignment normal Neck: Neck: normal visual inspection, full ROM, no lymphadenopathy and no meningeal signs Chest: Chest palpation & inspection: normal inspection of the chest Resp: Effort & Inspection: normal respiratory effort and able to speak in complete sentences Auscultation: clear to auscultation bilaterally, no crackles, no rales, no rhonchi and no wheezes Cardio: Rate: regular rate Skin: General skin exam: normal color Other: Multiple fascicular areas to the left lower leg, indurated area of 4 x 6 cm left lower anterior leg. Area is red, blanchable. No increased warmth. Neuro: General: patient oriented x3, gait normal, moves all extremities and no meningeal signs Cognition (Neuro): normal cognition Speech: normal speech Gait exam (Neuro): Normal gait present Extrem: General: normal to inspection, full ROM, capillary refill normal and normal gait Psych: Appearance: grossly normal and well kempt Mental Status: mental status grossly normal Speech and movement: Normal speech and movement present and Clear speech present Affect: normal affect Attitude: cooperative Course Course Level of Care: Express Care Visit Vital Signs Vital signs: Vital Signs Temperature 98.1 F 09/29/24 18:21 Pulse Rate 90 09/29/24 18:21 Respiratory Rate 16 09/29/24 18:21 Blood Pressure 124/62 09/29/24 18:21 Pulse Oximetry 99 09/29/24 18:21 Temperature 98.1 F 09/29/24 18:21 Pulse Rate 90 09/29/24 18:21 Respiratory Rate 16 09/29/24 18:21 Blood Pressure 124/62 09/29/24 18:21 Pulse Oximetry 99 09/29/24 18:21 Reviewed MDM - Wound/Laceration MDM Narrative Medical decision making narrative: Patient sitting in exam room. Patient is nontoxic, vitals are stable. Patient presents a rash to the left lower leg. Vesicular areas, blanchable areas. Will cover with antibiotics, discussed [id number] treatments for probable dermatitis. Patient appropriate for outpatient treatment with close follow-up Discharge instructions reviewed with patient, as well as provided in writing per nursing staff. The instructions also include specific and strict return/GO TO THE ER as well as f/u information. All questions have been answered, and the patient deny any further questions with discharge and discharge plan. Some parts of this dictation were generated by voice recognition software and may contain typographical and/or grammatical inaccuracies. Differential Diagnosis Differential diagnosis: Likely abscess, abrasion, avulsion of skin and other (Dermatitis, cellulitis, abscess) Critical Care Time Critical Care Time Critical Care Time: No Discharge Plan Discharge Clinical Impression: Dermatitis Patient Disposition: Home Condition: Stable Instructions: Antibiotic Form, Dermatitis (ED) Additional Instructions: The most important part of your care is follow up with Primary care provider or Dermatology Take Benadryl 25 mg every 8 hours for itching Take Zyrtec 10 mg every day Apply cortisone cream twice daily Take antibiotic as prescribed Avoid hot showers, Take cool showers. Hot showers will make rashes worse Apply cool compresses every 2-3 hours for 15 minutes Go to the ER for new or worsening symptoms such as shortness of breath. Patient Language: Syrian Prescriptions: New sulfamethoxazole-trimethoprim [Bactrim DS] 800-160 mg tablet 1 tablet PO Q12H Qty: 14 0RF No Action fluconazole 100 mg tablet dextroamphetamine-amphetamine 20 mg tablet 20 mg PO BID Rx Instructions: 40 mg total daily propranolol 20 mg tablet 20 mg PO TID Rx Instructions: 60 mg total sertraline 50 mg tablet 50 mg PO HS pantoprazole [Protonix] [address] for susp in packet 40 mg PO DAILY Qty: 30 0RF Follow-up/Referrals: UNKNOWN,DOCTOR [Non-Staff] - Time of Disposition: 18:35
[2024-09-29 18:21] VITALS: BP 124/62; PULSE 90; RESP 16; TEMP 36.7; O2SAT 99
== END 2024-09-29 18:43 | disposition home or self-care (01) ==
PROVIDERS: Emergency Provider Nurse Practitioner
DX: L30.9 Dermatitis, unspecified (principal); J45.909 Unspecified asthma, uncomplicated; F90.9 Attention-deficit hyperactivity disorder, unspecified type; F41.9 Anxiety disorder, unspecified; F32.A Depression, unspecified
CPT/HCPCS: 99213; G0463

== ENCOUNTER 2024-10-02 14:35 | Emergency (ER) | payer OTHER, SELFPAY ==
--- OUTSIDE RECORDS SUMMARY | 2024-10-02 14:37 | XMS_ITS | Referral Summary ---
Author Organization [address] Address [address] [place] [phone] Care Team Providers Care Technical Product Manager Name Role Phone Unknown, Notinfile Primary Care Provider Unavail able Allergies Active Allergy Reactions Criticality Noted Date Comments Montelukast Other (See comments) High 06/19/2017 depression Medications albuterol HFA (PROVENTIL HFA,VENTOLIN HFA,PROAIR HFA) 90 mcg/actuation inhaler Inhale 2 puffs every 4 (four) hours as needed 04/24/2017 Active dextroamphetamin e-amphetamine (ADDERALL) 20 mg tablet 03/06/2023 Active fluticasone propionate (FLOVENT HFA) 110 mcg/actuation inhaler Inhale 2 puffs 2 (two) times a day 01/05/2018 Active montelukast (SINGULAIR) 10 mg tablet Take 1 tablet (10 mg total) by mouth daily 03/10/2018 Active propranoloL (INDERAL) 20 mg tablet 02/05/2023 Active sertraline (ZOLOFT) 50 mg tablet 02/25/2023 Active Active Problems Problem Noted Date Diagnosed Date Mild persistent asthma without complication 05/2016 Social History Tobacco Use Types Packs/Day Years Used Date Smoking Tobacco: Never Assessed Sex and Gender Information Value Date Recorded Sex Assigned at Not on file 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 Gender Identity Not on file Sexual Orientation Not on file Last Filed Vital Signs Vital Sign Reading Time Taken Comments Blood Pressure 146/94 03/25/2023 10:53 AM INDUSTRIAL SERVICE TECHNICIAN Pulse 113 03/25/2023 10:53 AM INDUSTRIAL SERVICE TECHNICIAN Temperature 37.1 C (98.7 F) 03/25/2023 10:53 AM INDUSTRIAL SERVICE TECHNICIAN Respiratory Rate 16 03/25/2023 10:53 AM INDUSTRIAL SERVICE TECHNICIAN Oxygen Saturation 96% 03/25/2023 10:53 AM INDUSTRIAL SERVICE TECHNICIAN Inhaled Oxygen Concentration - - Weight 135.2 kg (298 lb) 03/25/2023 10:53 AM INDUSTRIAL SERVICE TECHNICIAN Height 190.5 cm (6' 3) 03/25/2023 10:53 AM INDUSTRIAL SERVICE TECHNICIAN Body Mass Index 37.25 03/25/2023 10:53 AM INDUSTRIAL SERVICE TECHNICIAN Plan of Treatment Not on file Insurance [facility] [id number] [facility] Care Teams Technical Product Manager Relationship Specialty Start Date End Date Unknown, Notinfile PCP - General 03/25/23
--- OUTSIDE RECORDS SUMMARY | 2024-10-02 14:37 | XMS_ITS | Clinical Summary ---
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 Gender Identity Not on file Sexual Orientation Not on file Obstetrics History Last Filed Vital Signs Vital Sign Reading Time Taken Comments Blood Pressure 146/94 03/25/2023 10:53 AM CAR BODY MECHANIC Pulse 113 03/25/2023 10:53 AM CAR BODY MECHANIC Temperature 37.1 C (98.7 F) 03/25/2023 10:53 AM CAR BODY MECHANIC Respiratory Rate 16 03/25/2023 10:53 AM CAR BODY MECHANIC Oxygen Saturation 96% 03/25/2023 10:53 AM CAR BODY MECHANIC Inhaled Oxygen Concentration - - Weight 135.2 kg (298 lb) 03/25/2023 10:53 AM CAR BODY MECHANIC Height 190.5 cm (6' 3) 03/25/2023 10:53 AM CAR BODY MECHANIC Body Mass Index 37.25 03/25/2023 10:53 AM CAR BODY MECHANIC Plan of Treatment Health Maintenance Due Date Last Done Comments Depression Screening 1996 Hepatitis C Screening 1996 Pneumococcal vaccine <65 (2 of 3 - PCV) 09/22/2001 09/22/2000 Regular Well Visit/Exam 18-64 2014 HPV Vaccines (1 - 3-dose SCD M series) 08/22/2023 Covid-19 Vaccine (3 - 2023-2 5 season) 2023 06/26/2020, 06/05/2020 Influenza Vaccine (#1) 2024 8, 05/30/2017, 12/05/2013 DTaP/Tdap/Td Vaccine (8 - Td or Tdap) 05/31/2027 05/30/2017, 02/26/2007, 08/17/2001, Additional history exists Hepatitis B Screening Completed 06/06/1997 , 06/06/1997, 1996, Additional history exists Varicella Vaccines Completed 08/29/2010, 0 08/29/1997, 08/25/1997 Insurance [facility] [id number] [facility] Care Teams Fifth Hand Relationship Specialty Start Date End Date Unknown, Notinfile PCP - General 03/25/23
[2024-10-02 14:40] VITALS: BP 134/80; PULSE 80; RESP 16; TEMP 36.3; O2SAT 100
[2024-10-02 17:05] VITALS: O2SAT 100
--- OUTSIDE RECORDS SUMMARY | 2024-10-02 17:28 | XMS_ITS | Clinical Summary ---
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 Gender Identity Not on file Sexual Orientation Not on file Obstetrics History Last Filed Vital Signs Vital Sign Reading Time Taken Comments Blood Pressure 146/94 03/25/2023 10:53 AM METAL FABRICATOR Pulse 113 03/25/2023 10:53 AM METAL FABRICATOR Temperature 37.1 C (98.7 F) 03/25/2023 10:53 AM METAL FABRICATOR Respiratory Rate 16 03/25/2023 10:53 AM METAL FABRICATOR Oxygen Saturation 96% 03/25/2023 10:53 AM METAL FABRICATOR Inhaled Oxygen Concentration - - Weight 135.2 kg (298 lb) 03/25/2023 10:53 AM METAL FABRICATOR Height 190.5 cm (6' 3) 03/25/2023 10:53 AM METAL FABRICATOR Body Mass Index 37.25 03/25/2023 10:53 AM METAL FABRICATOR Plan of Treatment Health Maintenance Due Date [...] Vaccines Completed 08/29/2010, 0 08/29/1997, 08/25/1997 Insurance [facility] [id number] [facility] Care Teams Physical Therapy Professor Relationship Specialty Start Date End Date Unknown, Notinfile PCP - General 03/25/23
--- OUTSIDE RECORDS SUMMARY | 2024-10-02 17:28 | XMS_ITS | Referral Summary ---
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 Gender Identity Not on file Sexual Orientation Not on file Last Filed Vital Signs Vital Sign Reading Time Taken Comments Blood Pressure 146/94 03/25/2023 10:53 AM PORTABLE IRRIGATION OPERATOR Pulse 113 03/25/2023 10:53 AM PORTABLE IRRIGATION OPERATOR Temperature 37.1 C (98.7 F) 03/25/2023 10:53 AM PORTABLE IRRIGATION OPERATOR Respiratory Rate 16 03/25/2023 10:53 AM PORTABLE IRRIGATION OPERATOR Oxygen Saturation 96% 03/25/2023 10:53 AM PORTABLE IRRIGATION OPERATOR Inhaled Oxygen Concentration - - Weight 135.2 kg (298 lb) 03/25/2023 10:53 AM PORTABLE IRRIGATION OPERATOR Height 190.5 cm (6' 3) 03/25/2023 10:53 AM PORTABLE IRRIGATION OPERATOR Body Mass Index 37.25 03/25/2023 10:53 AM PORTABLE IRRIGATION OPERATOR Plan of Treatment Not on file Insurance [facility] [id number] [facility] Care Teams Outside Operator Relationship Specialty Start Date End Date Unknown, Notinfile PCP - General 03/25/23
--- NOTE | 2024-10-02 17:33 | ED.ALLEREA ---
HPI - Allergic Reaction General Chief complaint: Allergic Reaction Stated complaint: POISON VIVIAN Time Seen by Provider: 10/02/24 17:12 Source: patient Mode of arrival: ambulatory Limitations: no limitations History of Present Illness HPI narrative: This is a 29 year old male that presents to the ER for rash to the bilateral lower extremities. Unsure of certain exposure, reports possible contact with poison vivian. Was seen at urgent care and started on an antibiotic and instructed on use of antihistamines. Related Data Home Medications ?Medication ?Instructions ?Recorded ?Confirmed ?Last Taken ?Type dextroamphetamine-amphetamine 20 20 mg PO BID 03/25/23 03/25/23 03/25/23 09:00 History mg tablet propranolol 20 mg tablet 20 mg PO TID 03/25/23 09/29/24 03/25/23 09:00 History sertraline 50 mg tablet 50 mg PO HS 03/25/23 09/29/24 03/24/23 History fluconazole 100 mg tablet mg 09/29/24 Unknown History Allergies Allergy/AdvReac Type Severity Reaction Status Date / Time No Known Allergies Allergy Verified 10/02/24 17:05 Review of Systems Review of Systems: All systems reviewed & are unremarkable except as noted in HPI and below PMFSH Past Medical History Medical History (Updated 10/02/24 @ 17:34 by Trista Connelly PA-C) Alcohol abuse Elevated liver enzymes Upper abdominal pain ADHD Anxiety and depression Asthma Surgical History Surgical History History of repair of anterior cruciate ligament L Knee - 2010 Family History Family History Father Hypertension GERD (gastroesophageal reflux disease) Social History Social History Smoking status: Former smoker Second hand tobacco smoke exposure: No Additional smoking assessment comments: stated he vapes every now and then. Alcohol intake: current Drinks per week: 4 Substance use: never Substance use type: does not use Do You Feel Safe in your Home?: Yes Lack of Transportation: No Lack of Food: Never True Current Housing: I Have Housing Concerned About Future Housing: No Difficulty Paying Gas/Electric Bills: No Difficulty Paying for Meds: No Currently Unemployed: No Education: High School Diploma/GED Difficulty w/ Childcare or Family Care: No Spiritual care concerns: No Exam Narrative: GENERAL: Well-appearing, well-nourished, and in no acute distress. HEAD: Normocephalic, atraumatic. EYES: EOMI. EXTREMITIES: Normal range of motion. No edema. SKIN: Warm, dry. Vesicles and red papules present to the bilateral lower legs NEURO: No focal deficits. Alert and oriented x3. PSYCH: Normal mood and affect Course Vital Signs Vital signs: Vital Signs Temperature 97.3 F L 10/02/24 14:40 Pulse Rate 80 10/02/24 14:40 Respiratory Rate 16 10/02/24 14:40 Blood Pressure 134/80 10/02/24 14:40 Pulse Oximetry 100 10/02/24 14:40 Oxygen Delivery Room Air 10/02/24 14:40 Temperature 97.3 F L 10/02/24 14:40 Pulse Rate 80 10/02/24 14:40 Respiratory Rate 16 10/02/24 14:40 Blood Pressure 134/80 10/02/24 14:40 Pulse Oximetry 100 10/02/24 17:05 Oxygen Delivery Room Air 10/02/24 17:05 MDM - Allergic Reaction MDM Narrative Medical decision making narrative: Patient presents to the ER for rash consistent with contact dermatitis, likely due to plant irritant. Was started on oral antibiotic and antihistamines by urgent care. Will start oral steroid taper Differential Diagnosis Differential diagnosis: Likely allergic reaction, contact dermatitis, viral enanthem and urticaria Critical Care Time Critical Care Time Critical Care Time: No Discharge Plan Discharge Clinical Impression: Contact dermatitis Qualifiers: Contact dermatitis type: irritant Contact dermatitis trigger: unspecified trigger Qualified Code(s): L24.9 - Irritant contact dermatitis, unspecified cause Patient Disposition: Home Condition: Stable Instructions: Poison Vivian (ED) Additional Instructions: Return to the emergency department if you experience fever, redness and swelling of your leg, or any other symptoms that are concerning to you Take a Pepcid and Zyrtec daily. Take steroid taper as prescribed. Benadryl as needed for severe itching Follow-up with primary care doctor Patient Language: Somali Prescriptions: New prednisone 10 mg tablet 10 mg PO DAILY Qty: 45 0RF Rx Instructions: 5 tabs daily for 3 days, 4 tabs daily for 3 days, 3 tabs daily for 3 days, 2 tabs daily for 3 days, 1 tab daily for 3 days No Action fluconazole 100 mg tablet sulfamethoxazole-trimethoprim [Bactrim DS] 800-160 mg tablet 1 tablet PO Q12H Qty: 14 0RF dextroamphetamine-amphetamine 20 mg tablet 20 mg PO BID Rx Instructions: 40 mg total daily propranolol 20 mg tablet 20 mg PO TID Rx Instructions: 60 mg total sertraline 50 mg tablet 50 mg PO HS pantoprazole [Protonix] [address] for susp in packet 40 mg PO DAILY Qty: 30 0RF Follow-up/Referrals: PHYSICIAN,ADMINISTRATIVE MEDICAL DIRECTOR [Primary Care Provider] - Jozef Garcia MD [Physician] -
[2024-10-02] MEDS: dexAMETHasone SOD PHOS INJ 10 MG/ML 1 ML VIAL IM (17:38)
== END 2024-10-02 17:45 | disposition home or self-care (01) ==
PROVIDERS: Emergency Provider Physician Assistant
DX: L24.9 Irritant contact dermatitis, unspecified cause (principal); J45.909 Unspecified asthma, uncomplicated; F90.9 Attention-deficit hyperactivity disorder, unspecified type; F41.9 Anxiety disorder, unspecified; F32.A Depression, unspecified; F17.290 Nicotine dependence, other tobacco product, uncomplicated; Z79.899 Other long term (current) drug therapy
CPT/HCPCS: 96372; 99283; J1100